=== PATIENT | female | born 1980 ===

== ENCOUNTER → 2024-03-18 15:49 | Outpatient (CLI) | payer OTHER, MEDICAID, SELFPAY ==
[2024-03-18 17:12] LABS: TSH w/ Reflex to FT4 1.23 uIU/mL (0.47-4.68)
== END ==
PROVIDERS: PCP Family Medicine; Referring Provider Family Medicine; Visit Provider Family Medicine
DX: E04.1 Nontoxic single thyroid nodule (principal); Z83.49 Family history of other endocrine, nutritional and metabolic diseases
CPT/HCPCS: 36415; 84443